=== PATIENT | female | born 1975 | race Two or more races ===

== ENCOUNTER 2020-05-03 17:40 | Emergency (ER) | payer MEDICAID ==
[~2020-05-03] VITALS: Ht 162.6 cm; Wt 68.0 kg
[2020-05-03 17:40] VITALS: BP 113/73
[2020-05-03] MEDS ORDERED: ACETAMINOPHEN 325MG TABLET PO STA (18:42)
[2020-05-03] MEDS ORDERED: IBUPROFEN 600MG TABLET PO ONE (20:00)
== END 2020-05-03 21:49 | disposition home or self-care (01) ==
LOC: ER 17:40
DX: U07.1 COVID-19 (principal); R07.89 Other chest pain
CPT/HCPCS: 71045; 93005; 99283; C9803; U0003